=== PATIENT | male | born 1980 | race Caucasian/White ===

== ENCOUNTER 2022-06-27 17:22 | Emergency (ER) | payer OTHER ==
[2022-06-27] MEDS ORDERED: LORazepam 2 MG TAB PO PRN (17:30)
[2022-06-27 19:17] VITALS: BP 123/78
[2022-06-27] MEDS ORDERED: THIAMINE 100 MG TAB PO SCH (21:00)
[2022-06-28] MEDS ORDERED: MULTIVITAMINS/MINERALS THERAP 1 TAB PO SCH (09:00)
[2022-06-28] MEDS ORDERED: FOLIC ACID 1MG TAB PO SCH (09:00)
[2022-06-29] MEDS ORDERED: UNRESOLVED CLARIFICATION ENTRY XX SCH (00:01)
== END 2022-06-27 19:36 | disposition home or self-care (01) ==
LOC: M ED 17:53
DX: F19.10 Other psychoactive substance abuse, uncomplicated (principal); I10 Essential (primary) hypertension; J45.909 Unspecified asthma, uncomplicated; R56.9 Unspecified convulsions; F43.10 Post-traumatic stress disorder, unspecified; F20.9 Schizophrenia, unspecified; F17.200 Nicotine dependence, unspecified, uncomplicated